=== PATIENT | male | born 2000 | race Caucasian/White ===

== ENCOUNTER 2020-02-15 21:01 | Emergency (ER) | payer BC ==
[~2020-02-15] VITALS: Ht 177.8 cm; Wt 79.5 kg
[2020-02-15 21:29] VITALS: BP 130/73; PULSE 81; TEMP 98.2
== END 2020-02-15 22:22 | disposition home or self-care (01) ==
LOC: COL.ER 21:01
DX: S61.212A Laceration without foreign body of right middle finger without damage to nail, initial encounter (principal); W26.8XXA Contact with other sharp object(s), not elsewhere classified, initial encounter; Y92.009 Unspecified place in unspecified non-institutional (private) residence as the place of occurrence of the external cause

== ENCOUNTER → 2020-02-23 | Outpatient (CLI) | payer BC ==
[2020-02-23 10:27] VITALS: BP 131/74; PULSE 84; TEMP 98.6
== END ==
LOC: COL.ER 10:18
DX: Z48.02 Encounter for removal of sutures (principal)